=== PATIENT | male | born 1990 | race Caucasian/White ===

== ENCOUNTER 2024-10-28 04:45 | Emergency (ER) | payer MEDICAID, OTHER ==
[~2024-10-28] VITALS: Ht 170.2 cm; Wt 72.0 kg
[2024-10-28 05:12] VITALS: O2SAT 99
[2024-10-28 05:45] VITALS: BP 128/82
[2024-10-28] MEDS: IBUPROFEN 600MG TABLET PO ONE (05:45)
[2024-10-28 10:16] VITALS: PULSE 86; RESP 16; TEMP 37.00296; O2SAT 100
[2024-10-28] MEDS ORDERED: CHLO25CA10 MT (12:07)
== END 2024-10-28 10:20 | disposition home or self-care (01) ==
LOC: ER 04:50
DX: M25.571 Pain in right ankle and joints of right foot (principal); F12.90 Cannabis use, unspecified, uncomplicated
CPT/HCPCS: 29515; 73590; 73610; 99284

== ENCOUNTER 2024-10-28 10:25 | Emergency (ER) | payer MEDICAID, OTHER ==
[~2024-10-28] VITALS: Ht 172.7 cm; Wt 73.0 kg
[2024-10-28 10:47] VITALS: BP 156/61; O2SAT 99
[2024-10-28] MEDS ORDERED: CHLORDIAZEPOXIDE 25MG CAPSULE PO ONE (12:00)
[2024-10-28] MEDS ORDERED: CHLO25CA10 MT (12:07)
[2024-10-28] MEDS: CHLORDIAZEPOXIDE 25MG CAPSULE PO NR (13:17)
[2024-10-28 13:22] VITALS: PULSE 96; RESP 18; TEMP 37.00296; O2SAT 99
== END 2024-10-28 13:23 | disposition home or self-care (01) ==
LOC: ER 10:37
DX: F10.939 Alcohol use, unspecified with withdrawal, unspecified (principal); Y90.9 Presence of alcohol in blood, level not specified
CPT/HCPCS: 99283